=== PATIENT | female | born 1980 | race Caucasian/White ===

== ENCOUNTER → 2021-03-04 | Outpatient (CLI) | payer BC | LOC: MC.RAD 08:37 | DX: Z12.31 Encounter for screening mammogram for malignant neoplasm of breast (principal) ==

== ENCOUNTER → 2022-10-20 | Outpatient (CLI) | payer OTHER | LOC: COL.RAD 15:38 | DX: N83.202 Unspecified ovarian cyst, left side (principal) ==

== ENCOUNTER → 2024-02-11 | Outpatient (CLI) | payer BC ==
[~2024-02-11] MED LIST: B-121000 MCG PO; FERROUSAL325 MG PO; PROBIOTIC BLEN1 EACH PO; ZINC LOZENGES1 LOZ; ZOLOFT 25MG25 MG PO
== END ==
LOC: MC.RAD 11:32
DX: Z12.31 Encounter for screening mammogram for malignant neoplasm of breast (principal)